=== PATIENT | female | born 1985 | race Caucasian/White ===

== ENCOUNTER 2020-03-20 10:49 | Outpatient (CLI) | payer OTHER, SELFPAY ==
--- NOTE | ~2020-03-20 | XR_ITS ---
EXAMINATION: XR chest 2V DATE: 03/20/2020 11:24 INDICATION: Chest pain between the shoulder blades. TECHNIQUE: frontal and lateral views of the chest were obtained. COMPARISON: None FINDINGS: The lungs are clear with no focal airspace opacities, pulmonary edema, pleural effusion or pneumothor ax. The cardiomediastinal silhouette is normal. Visualized bones and soft tissues are unremarkable. IMPRESSION: 1. Normal chest radiograph. Reviewed, dictated and finalized at location A. IMPRESSION: 1. Normal chest radiograph.
[2020-03-20 11:01] LABS: Basophils Absolute Auto 0.05 K/mm3 (0.00-0.10); Basophils Percent Auto 0.5 % (0.0-1.0); Hematocrit 43.9 % (35.0-49.0); Hemoglobin 14.6 g/dL (12.0-15.0); Immature Granulocyte Absolute 0.03 K/mm3 (0.00-0.00); Immature Granulocyte Percent A 0.3 % (0.0-0.0); Lymphocytes Absolute Auto 2.43 K/mm3 (1.10-4.50); Lymphocytes Percent Auto 23.3 % (18.0-42.0); Mean Corpuscular HGB Conc 33.3 g/dL (32.0-36.0); Mean Corpuscular Hemoglobin 32.2 pg (27.0-31.0); Mean Corpuscular Volume 96.7 fL (78.0-102.0); Mean Platelet Volume 9.2 fl (9.2-11.8); Monocytes Absolute Auto 0.71 K/mm3 (0.10-0.90); Monocytes Percent Auto 6.8 % (2.0-11.0); Neutrophils Absolute Auto 7.1 K/mm3 (1.7-7.2); Neutrophils Percent Auto 68.1 % (50.0-70.0); Platelet Count Result 301 K/mm3 (150-420); Red Blood Count 4.54 M/mm3 (4.20-5.40); Red Cell Distribution Width 12.2 % (11.6-14.4); White Blood Count 10.4 K/mm3 (4.8-10.8)
[2020-03-20 11:16] LABS: D Dimer 0.19 mg/L (0.19-0.50)
[2020-03-20 11:25] LABS: Alanine Aminotransferase 14 U/L (14-59); Albumin Level 3.6 g/dL (3.4-5.0); Alkaline Phosphatase 70 U/L (46-116); Aspartate Amino Transferase 10 U/L (15-37); Bilirubin,Total 0.3 mg/dL (0.00-1.00); Blood Urea Nitrogen 9 mg/dL (7-18); Carbon Dioxide 25 mmol/L (21-32); Chloride 105 mmol/L (98-108); Estimated Glomerular Filt Rate > 60; Glucose 91 mg/dL (70-99); Osmolality Calculated 284 mOsm/kg (285-295); Sodium 138 mmol/L (136-145); Total Protein 6.6 g/dL (6.4-8.2)
== END 2020-03-20 10:50 | disposition home or self-care (01) ==
PROVIDERS: PCP Internal Medicine; Visit Provider Internal Medicine
DX: R07.9 Chest pain, unspecified (principal)
CPT/HCPCS: 36415; 71046; 80053; 85025; 85380

== ENCOUNTER 2021-01-12 11:22 | Outpatient (CLI) | payer OTHER, SELFPAY ==
[2021-01-12 11:34] LABS: Basophils Absolute Auto 0.05 K/mm3 (0.00-0.10); Basophils Percent Auto 0.7 % (0.0-1.0); Eosinophils Absolute Auto 0.13 K/mm3 (0.02-0.50); Eosinophils Percent Auto 1.7 % (1.0-6.0); Hematocrit 42.1 % (35.0-49.0); Hemoglobin 14.1 g/dL (12.0-15.0); Immature Granulocyte Absolute 0.02 K/mm3 (0.00-0.00); Immature Granulocyte Percent A 0.3 % (0.0-0.0); Lymphocytes Absolute Auto 2.26 K/mm3 (1.10-4.50); Lymphocytes Percent Auto 29.9 % (18.0-42.0); Mean Corpuscular HGB Conc 33.5 g/dL (32.0-36.0); Mean Corpuscular Hemoglobin 32.6 pg (27.0-31.0); Mean Corpuscular Volume 97.5 fL (78.0-102.0); Mean Platelet Volume 10.2 fl (9.2-11.8); Monocytes Absolute Auto 0.44 K/mm3 (0.10-0.90); Monocytes Percent Auto 5.8 % (2.0-11.0); Neutrophils Absolute Auto 4.7 K/mm3 (1.7-7.2); Neutrophils Percent Auto 61.6 % (50.0-70.0); Platelet Count Result 251 K/mm3 (150-420); Red Blood Count 4.32 M/mm3 (4.20-5.40); Red Cell Distribution Width 11.9 % (11.6-14.4); White Blood Count 7.6 K/mm3 (4.8-10.8)
[2021-01-12 11:37] LABS: Add Urine Microscopic? YES; Appearance Urine Clear (Clear); Bilirubin Urine Negative (Negative); Blood Urine 3+ (Negative); Color Urine Yellow (Yellow); Glucose Urine UA Negative (Negative); Ketones Urine Trace (Negative); Leukocyte Esterase Ur Trace (Negative); Nitrate Urine Negative (Negative); Protein Urine Negative (Negative); Specific Grav Ur 1.015 (1.010-1.020); Urobilinogen Urine 0.2 mg/dL (0.2-1.0); pH Urine 5.5 (5.0-8.0)
[2021-01-12 11:42] LABS: Bacteria Urine 1+ /hpf; Squamous Epithelial Cell Urine Few /hpf (Few); WBC Urine 0-3 /hpf (0-3)
[2021-01-12 12:33] LABS: Alanine Aminotransferase 16 U/L (14-59); Alkaline Phosphatase 58 U/L (46-116); Amylase 50 U/L (25-115); Anion Gap 9 mmol/L (8-16); Aspartate Amino Transferase 10 U/L (15-37); Beta HCG Quantitative < 1.00 mIU/mL (0-6); Bilirubin,Total 0.4 mg/dL (0.00-1.00); Blood Urea Nitrogen 11 mg/dL (7-18); Calcium 8.8 mg/dL (8.5-10.1); Carbon Dioxide 27 mmol/L (21-32); Chloride 102 mmol/L (98-108); Estimated Glomerular Filt Rate > 60; Glucose 83 mg/dL (70-99); Lipase 45 U/L (73-393); Osmolality Calculated 284 mOsm/kg (285-295); Potassium 4.3 mmol/L (3.5-5.1); Sodium 138 mmol/L (136-145); Total Protein 6.5 g/dL (6.4-8.2)
== END 2021-01-12 11:23 | disposition home or self-care (01) ==
LOC: CHSLAB 11:25
PROVIDERS: PCP Internal Medicine; Visit Provider Internal Medicine
DX: R10.9 Unspecified abdominal pain (principal)
CPT/HCPCS: 36415; 80053; 81001; 82150; 83690; 84702; 85025

== ENCOUNTER 2021-01-15 15:05 | Outpatient (CLI) | payer OTHER, SELFPAY ==
--- NOTE | ~2021-01-15 | US_ITS ---
US right upper quadrant INDICATION: Abdomen pain. PROCEDURE: Realtime right upper abdominal ultrasound. COMPARISON: No prior studies for comparison. FINDINGS: The pancreas is normal without focal mass or pancreatic ductal dilation. Liver echotexture is normal without focal mass or intrahepatic biliary dilatation. There is normal directional flow i n the portal vein. The gallbladder is normal without stones, gallbladder wall thickening or pericholecystic fluid. Comm on bile duct measures 2 mm. No sonographic Deshpande's sign. IMPRESSION: 1: Normal limited abdominal ultrasound. Reviewed, dictated and finalized at location A.
== END 2021-01-15 15:06 | disposition home or self-care (01) ==
LOC: CHSIMG 15:06
PROVIDERS: PCP Internal Medicine; Visit Provider Internal Medicine
DX: R10.9 Unspecified abdominal pain (principal)
CPT/HCPCS: 76705

== ENCOUNTER 2021-02-16 17:12 | Emergency (ER) | payer OTHER, SELFPAY ==
--- NOTE | ~2021-02-16 | XR_ITS ---
EXAMINATION: XR toe 5th LT min 2V INDICATION: Left fifth toe pain and swelling TECHNIQUE: Four views of the left fifth toe are obtained. COMPARISON: None available FINDINGS: There is soft tissue swelling of the fifth toe. The distal interphalangeal joint is fused. No fracture is identified. The joint spaces appear normal. IMPRESSION: 1. Soft tissue swelling without acute osseous abnormality. Reviewed, dictated and finalized at location A.
[2021-02-16 17:20] VITALS: BP 133/87; PULSE 111; RESP 14; TEMP 36.6; O2SAT 97
--- NOTE | 2021-02-16 17:59 | ED.LOWEXIN ---
HPI - Extremity Injury (Lower) General Chief Complaint: Extremity Injury, Lower Stated Complaint: dislocated toe Source: patient Mode of arrival: ambulatory Limitations: no limitations History of Present Illness HPI Narrative: Yesterday the patient hit her toe, and she is having a lot of pain. SHe has no other injury. SHe said the toes was sideways after the injury. sara has been having pain in it today. complaint: foot injury Onset (ago): day(s) (1) Injury: Left: toes Type of Injury: blunt Place: home Relieving factors: rest Exacerbating factors: weight bearing Context: direct blow Other symptoms: none Related Data Home Medications Medication Instructions Recorded Confirmed No Home Medications 02/16/21 02/16/21 Allergies Allergy/AdvReac Type Severity Reaction Status Date / Time No Known Drug Allergies Allergy Unknown Verified 01/17/17 13:27 Review of Systems Review of Systems: All systems reviewed & are unremarkable except as noted in HPI and below PMFSH Surgical History Surgical History (Updated 02/16/21 @ 18:03 by Eloina Jauregui MD) H/O hand surgery Social History Social History (Updated 02/16/21 @ 18:04 by Eloina Jauregui MD) Smoking packs per day: 1 Smoking cigarettes per day: 20.0 Smoking status: Current every day smoker Alcohol intake: current Alcohol use details: social Substance use: never Exam Const: General: no acute distress and alert Orientation/consciousness: patient oriented x3 HENMT: Head: normal to inspection Eyes: Conjunctivae: conjunctivae normal Neck: Neck: normal visual inspection Chest: Chest palpation & inspection: normal inspection of the chest Resp: Effort & Inspection: normal respiratory effort Skin: General skin exam: normal color Rashes: no rashes Neuro: General: patient oriented x3, moves all extremities, no meningeal signs and no focal motor deficits Speech: normal speech Gait exam (Neuro): Normal gait present Extrem: Other: left 5th toe is very movable- almost floppy; Psych: Appearance: grossly normal Mental Status: mental status grossly normal Affect: normal affect Thought content: Yes Normal thought content present Course Course Emergency Course: 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 Toe is floppy, i tried to relocate, but it is very loose. I suspect ligaments that make up the joint are torn. Vital Signs Vital signs: Vital Signs Temperature 36.6 C 02/16/21 17:20 Pulse Rate 111 H 02/16/21 17:20 Respiratory Rate 14 02/16/21 17:20 Blood Pressure 133/87 02/16/21 17:20 Pulse Oximetry 97 02/16/21 17:20 Temperature 36.6 C 02/16/21 17:20 Pulse Rate 110 H 02/16/21 18:28 Respiratory Rate 15 02/16/21 18:28 Blood Pressure 133/87 02/16/21 17:20 Pulse Oximetry 99 02/16/21 18:28 Critical Care Time Critical Care Time Critical Care Time: No Discharge Plan Discharge Clinical Impression: Closed dislocation of fifth toe Patient Disposition: Home, Self-Care Condition: Stable Instructions: Toe Fracture (ED) Prescriptions: No Action No Home Medications RF: 0 Follow-up/Referrals: Bashir Shin MD [Primary Care Provider] - Stand Alone Forms: Work/School Release IP Time of Disposition: 18:36
[2021-02-16 18:28] VITALS: PULSE 110; RESP 15; O2SAT 99
== END 2021-02-16 18:37 | disposition home or self-care (01) ==
PROVIDERS: Emergency Provider Emergency Medicine; PCP Internal Medicine
DX: S93.105A Unspecified dislocation of left toe(s), initial encounter (principal); W22.8XXA Striking against or struck by other objects, initial encounter
CPT/HCPCS: 73660; 99282; 99283

== ENCOUNTER 2021-05-12 02:30 | Emergency (ER) | payer OTHER, SELFPAY ==
--- NOTE | ~2021-05-12 | XR_ITS ---
EXAMINATION: XR hip LT min 3V w AP pelvis INDICATION: Left hip pain TECHNIQUE: AP view of the pelvis and two views of the left hip are obtained. COMPARISON: None available FINDINGS: Bone alignment is normal. There is no fracture. The soft tissues are unremarkable. A bone i sland is noted in the right superior pubic ramus. IMPRESSION: 1. No acute osseous abnormality. Reviewed, dictated and finalized at location A.
--- NOTE | ~2021-05-12 | XR_ITS ---
EXAMINATION: XR chest 1V portable INDICATION: Chest pain TECHNIQUE: Portable AP chest at 0350 hours COMPARISON: 03/20/2020 FINDINGS: The lungs are free of acute opacities. There is no pleural effusion or pneumothorax. The ca rdiomediastinal silhouette is normal. The visualized bones and soft tissues are unremarkable. IMPRESSION: 1. No acute cardiopulmonary abnormality. Reviewed, dictated and finalized at location A.
--- NOTE | ~2021-05-12 | CT_ITS ---
EXAMINATION: CT brain wo con INDICATION: Head injury COMPARISON: 12/30/2007 TECHNIQUE: Standard unenhanced head CT. The dose-length product (DLP) was 605.33 mGy-cm. The mA was a djusted according to patient size. Iterative reconstruction technique was employed. FINDINGS: There is a right frontal scalp hematoma. There is no intracranial hemorrhage, acute infarct ion, or abnormal mass lesion. The ventricles are normal. There is no abnormal mass effect or midline shift. The anaya-white matter differentiation is normal. The basal cisterns are patent. The orbits are normal. The paranasal sinuses, mastoids and calvarium are normal. IMPRESSION: 1. No acute intracranial abnormality. Reviewed, dictated and finalized at location A.
--- NOTE | ~2021-05-12 | XR_ITS ---
EXAMINATION: XR tibia fibula RT 2V INDICATION: Right leg pain and swelling, initial encounter TECHNIQUE: Two views of the right tibia and fibula are obtained. COMPARISON: None available FINDINGS: There is an acute, traumatic, closed, nondisplaced fracture of the lateral tibial plateau. No additional acute osseous abnormality is identified. The soft tissues are unremarkable. IMPRESSION: 1. Nondisplaced lateral tibial plateau fracture. Reviewed, dictated and finalized at location A.
--- NOTE | ~2021-05-12 | XR_ITS ---
EXAMINATION: XR knee RT min 4V DATE: 05/12/2021 04:35 INDICATION: Right knee pain, initial encounter TECHNIQUE: Four views of the right knee were obtained. COMPARISON: None. FINDINGS: There is an acute, traumatic, closed, nondisplaced fracture of the lateral tibial plateau. Joint spaces are normal with no erosions. There is a large knee joint effusion. No additional osseou s abnormality is identified. Soft tissues are unremarkable. IMPRESSION: 1. Nondisplaced lateral tibial plateau fracture with large joint effusion. Reviewed, dictated and finalized at location A.
--- NOTE | ~2021-05-12 | CT_ITS ---
EXAMINATION: CT cervical spine wo con DATE: 05/12/2021 04:32 INDICATION: Neck pain TECHNIQUE: Computed tomography (CT) of the cervical spine was performed without intravenous contrast. The dose-length product (DLP) was 123.34 mGy-cm. Automated exposure control and iterative reconstruc tion technique were employed. COMPARISON: None FINDINGS: There is no fracture. The vertebral body heights and alignment are normal. The intervertebr al disc spaces are maintained. The odontoid is intact. There is mild facet osteoarthritis at multiple levels. IMPRESSION: 1. Mild cervical spondylosis without acute findings. Reviewed, dictated and finalized at location A.
[2021-05-12 02:52] VITALS: BP 100/60; PULSE 90; RESP 20; TEMP 36.6; O2SAT 96
[2021-05-12 03:06] LABS: Basophils Absolute Auto 0.06 K/mm3 (0.00-0.10); Basophils Percent Auto 0.6 % (0.0-1.0); Eosinophils Percent Auto 2.8 % (1.0-6.0); Hematocrit 42.1 % (35.0-49.0); Hemoglobin 14.5 g/dL (12.0-15.0); Immature Granulocyte Absolute 0.05 K/mm3 (0.00-0.00); Immature Granulocyte Percent A 0.5 % (0.0-0.0); Lymphocytes Absolute Auto 4.27 K/mm3 (1.10-4.50); Lymphocytes Percent Auto 40.1 % (18.0-42.0); Mean Corpuscular HGB Conc 34.4 g/dL (32.0-36.0); Mean Corpuscular Hemoglobin 33.6 pg (27.0-31.0); Mean Corpuscular Volume 97.5 fL (78.0-102.0); Mean Platelet Volume 8.7 fl (9.2-11.8); Monocytes Absolute Auto 0.72 K/mm3 (0.10-0.90); Monocytes Percent Auto 6.8 % (2.0-11.0); Neutrophils Absolute Auto 5.3 K/mm3 (1.7-7.2); Neutrophils Percent Auto 49.2 % (50.0-70.0); Platelet Count Result 290 K/mm3 (150-420); Red Blood Count 4.32 M/mm3 (4.20-5.40); Red Cell Distribution Width 12.1 % (11.6-14.4); White Blood Count 10.7 K/mm3 (4.8-10.8)
[2021-05-12 03:21] LABS: Alanine Aminotransferase 22 U/L (14-59); Albumin Level 3.7 g/dL (3.4-5.0); Alkaline Phosphatase 86 U/L (46-116); Anion Gap 7 mmol/L (8-16); Aspartate Amino Transferase 15 U/L (15-37); Bilirubin,Total 0.2 mg/dL (0.00-1.00); Blood Urea Nitrogen 6 mg/dL (7-18); Calcium 7.9 mg/dL (8.5-10.1); Carbon Dioxide 26 mmol/L (21-32); Chloride 106 mmol/L (98-108); Estimated CRCL calculation 78 ml/min; Estimated Glomerular Filt Rate > 60; Glucose 83 mg/dL (70-99); Osmolality Calculated 284 mOsm/kg (285-295); Potassium 3.6 mmol/L (3.5-5.1); Sodium 139 mmol/L (136-145); Total Protein 6.8 g/dL (6.4-8.2)
[2021-05-12] MEDS: KETOROLAC (*BKC) 60 MG/2 ML VIAL IM (03:21)
[2021-05-12] MEDS: SODIUM CHLORIDE 0.9% IV 500 ML 999 ML IV CONT (03:22)
[2021-05-12 03:24] LABS: SPREG INTERNAL CONTROL Positive; Serum Qual hCG Negative
[2021-05-12 03:25] LABS: Add Urine Microscopic? NO; Appearance Urine Clear (Clear); Bilirubin Urine Negative (Negative); Blood Urine Negative (Negative); Color Urine Light Yellow (Yellow); Glucose Urine UA Negative (Negative); Ketones Urine Negative (Negative); Leukocyte Esterase Ur Negative (Negative); Nitrate Urine Negative (Negative); Protein Urine Negative (Negative); Specific Grav Ur <= 1.005 (1.010-1.020); Urobilinogen Urine 0.2 mg/dL (0.2-1.0); pH Urine 5.5 (5.0-8.0)
[2021-05-12 03:32] LABS: Amphetamine Screen Urine Positive (Negative); Barbiturate Screen Urine Negative (Negative); Benzodiazepines Screen Urine Negative (Negative); Cannabinoid Screen Urine Positive (Negative); Cocaine Screen Urine Negative (Negative); Methadone Screen Urine Negative (Negative); Opiate Screen Urine Negative (Negative); Phencyclidine Screen Urine Negative (Negative)
[2021-05-12 04:30] VITALS: BP 111/60; PULSE 70; RESP 18; O2SAT 96
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
[2021-05-12 06:23] VITALS: BP 111/80; PULSE 87; RESP 20; TEMP 36.1; O2SAT 96
== END 2021-05-12 06:35 | disposition home or self-care (01) ==
PROVIDERS: Emergency Provider Emergency Medicine; PCP Internal Medicine
DX: S82.141A Displaced bicondylar fracture of right tibia, initial encounter for closed fracture (principal); S06.0X9A Concussion with loss of consciousness of unspecified duration, initial encounter; S13.4XXA Sprain of ligaments of cervical spine, initial encounter; V89.2XXA Person injured in unspecified motor-vehicle accident, traffic, initial encounter
CPT/HCPCS: 36415; 70450; 71045; 72125; 73502; 73564; 73590; 80053; 80307; 81003; 84703; 85025; 96360; 96372; 99283; 99284; J1885; J7040

== ENCOUNTER 2021-05-22 18:31 | Emergency (ER) | payer OTHER, SELFPAY ==
[2021-05-22 19:00] VITALS: BP 131/89; PULSE 108; RESP 18; TEMP 36.8; O2SAT 98
[2021-05-22 21:07] VITALS: BP 142/103; PULSE 113; RESP 16; O2SAT 99
[2021-05-22 21:54] VITALS: BP 146/90; PULSE 105; RESP 18; O2SAT 99
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
== END 2021-05-22 22:40 | disposition home or self-care (01) ==
PROVIDERS: Emergency Provider Emergency Medicine; PCP Internal Medicine
DX: M79.89 Other specified soft tissue disorders (principal); S82.141D Displaced bicondylar fracture of right tibia, subsequent encounter for closed fracture with routine healing; X58.XXXD Exposure to other specified factors, subsequent encounter
CPT/HCPCS: 99281

== ENCOUNTER 2021-05-23 10:58 | Outpatient (CLI) | payer OTHER, SELFPAY ==
--- NOTE | ~2021-05-23 | US_ITS ---
EXAMINATION: US venous doppler LE RT DATE: 05/23/2021 11:28 INDICATION: Right lower limb swelling TECHNIQUE: Grayscale ultrasound images without and with compression and Doppler ultrasound images of the right lower extremity veins were obtained. COMPARISON: None. FINDINGS: The visualized portions of right common femoral vein, profunda (deep) femoral vein, femoral vein, pop liteal vein, peroneal trunk, posterior tibial veins, peroneal veins, gastrocnemius vein and greater s aphenous vein outflow are patent. IMPRESSION: 1. No deep venous thrombosis in the right lower limb. Reviewed, dictated and finalized at location B.
== END 2021-05-23 10:59 | disposition home or self-care (01) ==
LOC: ANHIMG 11:02
PROVIDERS: PCP Internal Medicine; Referring Provider Emergency Medicine; Visit Provider Internal Medicine
DX: M79.89 Other specified soft tissue disorders (principal)
CPT/HCPCS: 93971

== ENCOUNTER 2021-09-17 18:37 | Emergency (ER) | payer OTHER, SELFPAY ==
[2021-09-17 18:51] VITALS: BP 135/84; PULSE 123; RESP 20; TEMP 37.9; O2SAT 100
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
[2021-09-17] MEDS: KETOROLAC (*BKC) 60 MG/2 ML VIAL IM (20:02)
== END 2021-09-17 20:37 | disposition home or self-care (01) ==
PROVIDERS: Emergency Provider Emergency Medicine
DX: R31.9 Hematuria, unspecified (principal); R50.9 Fever, unspecified; Z20.822 Contact with and (suspected) exposure to COVID-19; F17.210 Nicotine dependence, cigarettes, uncomplicated; M79.7 Fibromyalgia
CPT/HCPCS: 81003; 87086; 87426; 87491; 87591; 87661; 87804; 96372; 99214; C9803; G0463; J1885

== ENCOUNTER 2021-09-18 12:00 | Emergency (ER) | payer OTHER, SELFPAY ==
--- NOTE | ~2021-09-18 | CT_ITS ---
EXAMINATION: CT abdomen pelvis wo con DATE: 09/18/2021 16:46 INDICATION: Left flank pain TECHNIQUE: Computed tomography (CT) of the abdomen and pelvis was performed without intravenous contr ast. Automated exposure control and iterative reconstruction technique were employed. The dose-length product was 204.66 mGy-cm. COMPARISON: None FINDINGS: Lung bases are clear. Heart size is normal. No pericardial or pleural effusion. Liver, gallbladder, s pleen, pancreas and bilateral adrenal glands are normal. Kidneys and ureters are normal with no uroli thiasis, hydroureteronephrosis or perinephric/ureteral stranding. There are few scattered colonic div erticula without adjacent inflammatory change to suggest diverticulitis. Small bowel and appendix are normal. Tampon within the vaginal vault. Bladder, anteverted uterus and bilateral adnexa are unremar kable. No free intraperitoneal gas or fluid. No pathologically enlarged abdominal or pelvic lymphaden opathy. Mild thoracolumbar dextrocurvature. There are few scattered small sclerotic bone islands. IMPRESSION: 1. No urolithiasis or other acute intra-abdominal/pelvic process. 2. Mild diverticulosis. Reviewed, dictated and finalized at location . [facility]
[2021-09-18 12:17] VITALS: BP 117/79; PULSE 100; RESP 16; TEMP 36.6; O2SAT 98
[2021-09-18 15:21] VITALS: BP 115/80; PULSE 92; RESP 18; TEMP 36.7; O2SAT 98
[2021-09-18 17:16] LABS: Add Urine Microscopic? YES; Appearance Urine Clear (Clear); Bilirubin Urine Negative (Negative); Blood Urine Negative (Negative); Color Urine Amber (Yellow); Glucose Urine UA Negative (Negative); Ketones Urine Negative (Negative); Leukocyte Esterase Ur Negative LEU/UL (Negative); Mucus Urine Rare /lpf; Nitrate Urine Positive (Negative); Protein Urine Negative (Negative); RBC Urine 0-2 /hpf (0-2); Squamous Epithelial Cell Urine Moderate /hpf (Few); WBC Urine 0-3 /hpf
--- NOTE | 2021-09-18 17:51 | ED.GENADULT ---
HPI - General Adult General Chief complaint: Fever Stated complaint: Fever. Time Seen by Provider: 09/18/21 15:21 Source: patient Mode of arrival: ambulatory Limitations: no limitations History of Present Illness HPI narrative: Patient is a 36-year-old female presented with chief complaint of headache, low back pain and chills over the past 2 days. Patient reports that she has a history of kidney stones and went to the urgent care last night and was prescribed cefdinir, Azo and tramadol. Patient reports that she has had kidney stones in the past. Patient reports that she was also tested for Covid yesterday which was negative. Patient reports however she was encouraged to obtain in additional test. Patient does not have fever at this time. Patient does not have nausea, vomiting, diarrhea, chest pain, shortness of breath. Patient just started her antibiotic last night. Review of Systems Review of Systems: CONSTITUTIONAL: Reports chills EYES: Denies visual changes, redness, or discharge. ENT: Denies rhinorrhea, congestion, sore throat, or otalgia. CARDIOVASCULAR: Denies chest pain, palpitations, or edema. RESPIRATORY: Denies cough or dyspnea. GASTROINTESTINAL: Denies abdominal pain, nausea, vomiting, or diarrhea. GENITOURINARY: Denies dysuria or hematuria. SKIN: Denies rash or itching. MUSCULOSKELETAL: Denies back pain, joint pain, or myalgia. NEUROLOGIC: Reports headache, denies numbness, dizziness, or weakness. PSYCHIATRIC: Denies anxiety or depression. Exam Narrative: GENERAL: Well-appearing, well-nourished, and in no acute distress. Nontoxic in appearance. HEAD: Normocephalic, atraumatic. EYES: PERRLA and EOMI. CHEST: Clear to auscultation. No respiratory distress. No wheezes rales or rhonchi. No CVA tenderness. HEART: Regular rate and rhythm. No murmur heard. Normal peripheral pulses. ABDOMEN: Soft, nontender, nondistended, normal active bowel sounds. EXTREMITIES: Normal range of motion. No edema. SKIN: Warm, dry, no rash. NEURO: No focal deficits. Alert and oriented x3. PSYCH: Normal mood and affect. Course Vital Signs Vital signs: Vital Signs Temperature 98 F 09/18/21 12:17 Pulse Rate 100 09/18/21 12:17 Respiratory Rate 16 09/18/21 12:17 Blood Pressure 117/79 09/18/21 12:17 Pulse Oximetry 98 09/18/21 12:17 Temperature 98.0 F 09/18/21 15:21 Pulse Rate 78 09/18/21 18:12 Respiratory Rate 18 09/18/21 18:12 Blood Pressure 132/68 09/18/21 18:12 Pulse Oximetry 99 09/18/21 18:12 Medical Decision Making MDM Narrative Medical decision making narrative: Patient nontoxic in appearance. Patient was just prescribed cefdinir which patient's urine is nitrate positive. Cefdinir is effective in the treatment of E. coli so the patient has not failed outpatient treatment as she was just prescribed the medication last night. Patient CT does not show signs of stranding or kidney stone. Patient instructed to take her medication as instructed and follow-up with her primary care in 2 days. Patient to return to emergency department with any fever, nausea, vomiting or any emergent symptoms. Vital Signs Vital Signs: Vital Signs Temperature 98 F 09/18/21 12:17 Pulse Rate 100 09/18/21 12:17 Respiratory Rate 16 09/18/21 12:17 Blood Pressure 117/79 09/18/21 12:17 Pulse Oximetry 98 09/18/21 12:17 Temperature 98.0 F 09/18/21 15:21 Pulse Rate 78 09/18/21 18:12 Respiratory Rate 18 09/18/21 18:12 Blood Pressure 132/68 09/18/21 18:12 Pulse Oximetry 99 09/18/21 18:12 Lab Data Labs: Lab Results 09/18/21 Range/Units 16:32 Urine Color Michaela (Yellow) Urine Appearance Clear (Clear) Urine pH 6.0 (5.0-9.0) Ur Specific [place] 1.010 (1.001-1.035) Urine Protein Negative (Negative) mg/dL Urine Glucose (UA) Negative (Negative) mg/dL Urine Ketones Negative (Negative) mg/dL Ur Blood (Man) Negative (Negative) Urine Nitrate Positive H (Nega
[2021-09-18 18:12] VITALS: BP 132/68; PULSE 78; RESP 18; O2SAT 99
== END 2021-09-18 18:13 | disposition home or self-care (01) ==
PROVIDERS: Physician Assistant; Emergency Provider Emergency Medicine; PCP Internal Medicine
DX: N30.00 Acute cystitis without hematuria (principal); Z87.442 Personal history of urinary calculi; K57.90 Diverticulosis of intestine, part unspecified, without perforation or abscess without bleeding
CPT/HCPCS: 74176; 81001; 81025; 99284